=== PATIENT | male | born 1995 | race Caucasian/White ===

== ENCOUNTER 2018-11-25 19:32 | Observation (INO) ==
[2018-11-25] MEDS ORDERED: Sod Chloride 0.9% Inj 1,000 ML IV.SIG SCH (20:15)
[2018-11-25] MEDS ORDERED: Morphine Inj 4 MG/ML Vial IV.PUSH ONE (20:15)
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
[2018-11-25 21:03] LABS: Bilirubin,Urine Negative (Negative); Clarity,Urine Clear (Clear); Color,Urine Yellow (Yellw/Straw); Glucose,Urine (UA) Negative (Negative); Nitrite,Urine Negative (Negative)
[2018-11-25 21:04] LABS: Leukocyte Esterase,Urine Negative (Negative); Urobilinogen,Urine 0.2 mg/dL (Less than 2)
--- NOTE | 2018-11-25 21:04 | XR ---
EXAM DATE: 11/25/2018 9:02 PM EST AGE/SEX: 22 years / Male INDICATIONS: Short of breath with cold symptoms for 3 days. CLINICAL DATA: This is the patient's initial encounter. Patient reports that signs and symptoms have been present for 3 days and indicates a pain score of 3/10. MEDICAL/SURGICAL HISTORY: None. . Right hip acetabulum. Tubs in ears. COMPARISON: [facility] – [place], CHEST 1V SINGLE AP, 11/17/2018. . FINDINGS: A single AP view of the chest demonstrates the lungs to be symmetrically aerated without evidence of mass, infiltrate or effusion. The cardiomediastinal contours are unremarkable. Osseous structures a re intact. CONCLUSION: The lungs are clear. Electronically signed by: Wing Faulkner MD Board Certified Radiologist 11/25/2018 9:03 PM EST
[2018-11-25 21:27] LABS: Baso % (Auto) 0.4 % (0.0-2.0); Eos # (Auto) 0.1 th/mm3 (0.0-0.4); Eos % (Auto) 2.3 % (0.0-4.0); Hematocrit 39.3 % (39.0-51.0); Hemoglobin 13.9 gm/dL (13.0-17.0); Lymph # (Auto) 2.4 th/mm3 (1.0-4.8); Lymph % (Auto) 40.8 % (9.0-44.0); Mean Corpuscular HGB Conc 35.5 % (32.0-36.0); Mean Corpuscular Hemoglobin 31.5 pg (27.0-34.0); Mean Corpuscular Volume 88.8 fL (80.0-100.0); Mean Platelet Volume 8.4 fL (7.0-11.0); Mono # (Auto) 0.7 th/mm3 (0.0-0.9); Mono % (Auto) 11.1 % (0.0-8.0); Neut # (Auto) 2.7 th/mm3 (1.8-7.7); Neut % (Auto) 45.4 % (16.0-70.0); Platelet Count 269 th/mm3 (150-450); Red Blood Count 4.43 mil/mm3 (4.50-5.90); Red Cell Distribution Width 12.8 % (11.6-17.2)
[2018-11-25 21:39] LABS: Activated Partial Thrombo Time 33.6 sec (23.4-31.7); INR 1.1 Ratio
[2018-11-25 21:50] LABS: Alanine Aminotransferase 36 U/L (9-52); Albumin 3.5 g/dL (3.4-5.0); Anion Gap 9 meq/L (5-15); Aspartate Aminotransferase 39 U/L (15-39); Blood Urea Nitrogen 16 mg/dL (7-18); Calcium 8.5 mg/dL (8.5-10.1); Carbon Dioxide 24.7 meq/L (21.0-32.0); Chloride 102 meq/L (98-107); Glomerular Filtration Rate 89 mL/min (>89); Glucose,Random 100 mg/dL (74-106); Potassium 3.8 meq/L (3.5-5.1); Sodium 136 meq/L (136-145)
[2018-11-25 21:54] LABS: Alkaline Phosphatase 83 U/L (45-117); Total Protein 7.5 g/dL (6.4-8.2)
--- NOTE | 2018-11-25 22:32 | CT ---
EXAM DATE: 11/25/2018 10:27 PM EST AGE/SEX: 22 years / Male INDICATIONS: Chest pain and shortness of breath. Recent right hip surgery. CLINICAL DATA: This is the patient's initial encounter. Patient reports that signs and symptoms have been present for 1 day and indicates a pain score of 5/10. MEDICAL/SURGICAL HISTORY: None. . Right acetabulum. RADIATION DOSE: 10.7 CTDI (mGy) COMPARISON: [facility] [place], CT CHEST W CONTRAST, 11/17/2018. . TECHNIQUE: Volumetric scanning was performed using a multi-row detector CT scanner during bolus infu ksenia of 75 ml Omnipaque 350 (iohexol) nonionic water-soluble contrast as a single exam dose. The patricia a was post processed with a variety of visualization algorithms including full volume maximum intensi ty projection and sliding thin slab reformation. Using automated exposure control and adjustment of t he mA and/or kV according to patient size, radiation dose was kept as low as reasonably achievable to obtain optimal diagnostic quality images. DICOM format image data is available electronically for r eview and comparison. FINDINGS: Pulmonary Arteries: No filling defects are seen in the pulmonary arteries out to the subsegmental ve ssels. The left and right pulmonary arteries are normal in diameter. Lung: No infiltrates seen. Effusion: None. Mediastinum: No evidence of mediastinal or hilar adenopathy. Other: The axilla is unremarkable. CONCLUSION: 1. This study is negative for pulmonary embolism. Electronically signed by: Wing Faulkner MD Board Certified Radiologist 11/25/2018 10:31 PM EST
[2018-11-25] MEDS ORDERED: Vancomycin Inj 1,000 MG in Sodium Chlor 0.9% Inj 250 ML IV.SIG ONE (22:44)
[2018-11-25] MEDS ORDERED: Acetaminophen 325 MG Tablet PO PRN ×2 (22:56)
[2018-11-25] MEDS ORDERED: Naloxone Inj 0.4 MG/ML Vial IV.PUSH PRN (22:56)
[2018-11-25] MEDS ORDERED: Vancomycin Consult Pharmacy OTHER PRN (22:56)
[2018-11-25] MEDS ORDERED: Temazepam 15 MG Capsule PO PRN (22:56)
[2018-11-25] MEDS ORDERED: Bisacodyl 10 MG Supp RECTAL PRN (22:56)
[2018-11-25] MEDS: Sod Chloride 0.9% Inj 1,000 ML IV.CONT SCH (23:29)
[2018-11-25] MEDS: Piperacil/Tazo 4.5 GM Premix 4.5 GM/100 ML BAG IV.SIG SCH (23:29)
[2018-11-26] MEDS: Sod Chloride 0.9% Inj 1,000 ML IV.CONT SCH ×2 (00:16→09:39)
[2018-11-26] MEDS ORDERED: Vancomycin Inj 2,000 MG in Sodium Chlor 0.9% Inj 500 ML IV.SIG ONE (01:00)
[2018-11-26] MEDS: Piperacil/Tazo 4.5 GM Premix 4.5 GM/100 ML BAG IV.SIG SCH (07:27)
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
[2018-11-26 08:58] LABS: Baso % (Auto) 0.7 % (0.0-2.0); Eos # (Auto) 0.1 th/mm3 (0.0-0.4); Eos % (Auto) 3.3 % (0.0-4.0); Hematocrit 36.7 % (39.0-51.0); Hemoglobin 12.8 gm/dL (13.0-17.0); Lymph # (Auto) 1.6 th/mm3 (1.0-4.8); Mean Corpuscular Volume 91.4 fL (80.0-100.0); Mono # (Auto) 0.7 th/mm3 (0.0-0.9); Mono % (Auto) 15.4 % (0.0-8.0); Neut # (Auto) 1.9 th/mm3 (1.8-7.7); Neut % (Auto) 43.6 % (16.0-70.0); Platelet Count 214 th/mm3 (150-450); Red Blood Count 4.01 mil/mm3 (4.50-5.90); Red Cell Distribution Width 13.2 % (11.6-17.2); White Blood Count 4.3 th/mm3 (4.0-11.0)
[2018-11-26] MEDS ORDERED: Rivaroxaban 10 MG Tablet PO SCH (09:00)
[2018-11-26] MEDS ORDERED: Senna/Docusate Sodium 8.6/50 MG Tablet PO SCH (09:00)
[2018-11-26] MEDS: Gabapentin 300 MG Capsule PO SCH ×2 (09:38→14:49)
[2018-11-26 09:42] LABS: Anion Gap 7 meq/L (5-15); Blood Urea Nitrogen 12 mg/dL (7-18); Chloride 106 meq/L (98-107); Glomerular Filtration Rate Greater Than 89 mL/min (>89); Glucose,Random 92 mg/dL (74-106); Potassium 4.3 meq/L (3.5-5.1); Sodium 139 meq/L (136-145)
--- NOTE | 2018-11-26 11:42 | ECG ---
Date Performed: 11/25/2018 Time Performed: 20:09:37 PTAGE: 22 years EKG: SINUS TACHYCARDIA INFERIOR Q-WAVES INFERIOR MYOCARDIAL INFARCTION ABNORMAL ECG Since the PREVIOUS TRACING , no significant change noted PREVIOUS TRACIN07/21/2015 23.07 DOCTOR: Cl Jeffries Interpretating Date/Time 11/26/2018 11:39:57
[2018-11-26] MEDS ORDERED: Vancomycin Inj 1,750 MG in Sodium Chlor 0.9% Inj 500 ML IV.SIG SCH (12:00)
[2018-11-27] MEDS ORDERED: Pharmacy Ordered Lab Info OTHER ONE (11:45)
== END 2018-11-26 17:52 | disposition home or self-care (01) ==
LOC: NEPC 19:32 → NEDA 19:32 → NEPFCDU 23:52
PROVIDERS: ADMIT Hospitalist; ATTEND Hospitalist
DX: Z79.01 Long term (current) use of anticoagulants; R65.10 Systemic inflammatory response syndrome (SIRS) of non-infectious origin without acute organ dysfunction; R07.89 Other chest pain; J00 Acute nasopharyngitis [common cold]
CPT/HCPCS: 71010; 71045; 71275; 80048; 80053; 81001; 83605; 84484; 85025; 85610; 85730; 87040; 87275; 87276; 87804; 90761; 90775; 93005; 96361; 96365; 96366; 96375; 99285; G0378; J2270; J2405; J2543; J3370; J7030; J7040; Q9967